=== PATIENT | female | born 1970 | race Caucasian/White ===

== ENCOUNTER 2017-03-06 15:42 | Emergency (ER) | payer OTHER ==
[~2017-03-06] VITALS: Ht 167.6 cm; Wt 70.0 kg
[2017-03-06 15:44] VITALS: BP 182/105; PULSE 83; RESP 16; TEMP 98.7; O2SAT 99
[2017-03-06 15:56] VITALS: BP 164/92
[2017-03-06] MEDS ORDERED: IBUPROFEN 800 MG TAB PO ONE (16:45)
--- NOTE | 2017-03-06 16:47 | PD ---
HPI Chief Complaint: Injury Time Seen by Provider: 16:47 Travel History International Travel<30 days: No Contact w/Intl Traveler<30days: No Traveled to known affect area: No History of Present Illness HPI 46-year-old female presents to the emergency Department with complaint of right hand pain to the dorsal aspect after hitting it on a metal door frame while at work today. She is an employee at [employer]. Denies paresthesias, loss of vision , range of motion to the affected extremity. Denies fever or vomiting. Has not taken any medications to alleviate her symptoms. Has applied ice to the affected area. Reports swelling and bruising to the area. Denies allergies. Has no other medical complaints. No other modifying factors or associated signs and symptoms. [facility] Past Medical History ?: Not LMP: 02/2017 Social History Tobacco Use: No Allergies-Medications (Allergen,Severity, Reaction): Coded Allergies: No Known Allergies (Unverified , 03/06/17) Reported Meds & Prescriptions Reported Meds & Active Scripts Active No Active Prescriptions or Reported Medications Review of Systems Except as stated in HPI: all other systems reviewed are Neg Physical Exam Narrative GENERAL: Well-nourished, well-developed female patient, in no acute distress SKIN: Warm and dry. HEAD: Atraumatic. Normocephalic. EYES: Pupils equal and round. No scleral icterus. No injection or drainage. ENT: Mucosa pink and moist. Airway patent. NECK: Trachea midline. CARDIOVASCULAR: Regular rate. RESPIRATORY: No accessory muscle use. GASTROINTESTINAL: Flat. MUSCULOSKELETAL: Mild edema and ecchymosis noted to the dorsal aspect of the right hand to the area of the first and second metacarpals; no obvious deformity ; fingers with full range of motion and sensory intact and less than 3 second cap refill; areas with tenderness to palpation. Right upper approximately supplementals with 2+ radial pulses and sensory intact without erythema or edema. No obvious deformities. No clubbing. No cyanosis. NEUROLOGICAL: Awake and alert. Oriented 3. No obvious cranial nerve deficits. Motor grossly within normal limits. Normal speech. PSYCHIATRIC: Appropriate mood and affect; insight and judgment normal. Data Data Last Documented VS Vital Signs Date Time Temp Pulse Resp B/P Pulse Ox O2 Delivery O2 Flow Rate FiO2 03/06/17 15:56 164/92 03/06/17 15:44 98.7 83 16 99 Orders Hand, Complete ([id number]) (03/06/17 16:45) Ice/Cold Pack (03/06/17 16:45) Ibuprofen (Motrin) (03/06/17 16:45) MDM Medical Decision Making Medical Screen Exam Complete: Yes Emergency Medical Condition: Yes Medical Record Reviewed: Yes Differential Diagnosis Hand contusion, hand fracture, hand sprain Narrative Course 46-year-old female with right hand injury. She is an employee at [employer]. Injury occurred at work today. Ibuprofen administered in the ER. Right hand x- ray ordered. 1708: Right hand x-ray was no acute findings. Ry bandage applied for support. Ibuprofen prescribed for home. Patient verbalizes understanding and agreement with treatment plan. Patient is medically cleared and stable for discharge. Discussed reasons to return to the emergency department. Instructed patient to follow up with primary care provider. Patient agrees with treatment plan. The patients vital signs are stable and the patient is stable for outpatient follow-up and treatment. Patient discharged home, stable and in no acute distress. Diagnosis Primary Impression: Contusion of right hand Qualified Code: S60.221A - Contusion of right hand, initial encounter Referrals: Primary Care Physician Patient Instructions: Contusion in Adults (ED), General Instructions Departure Forms: Tests/Procedures, Work Release Enter return to work date: March 07, 2017 Additional Instructions: Tylenol or ibuprofen as directed and as needed to reduce pain Rest, ice, compress, and elevate extremity to decrease pain and inflammation Ry wrap for support Avoid aggravating activity; increase activity as tolerated Follow-up with primary care provider Return to the emergency department immediately with worsening symptoms Med/Other Pt SpecificInfo: Prescription(s) given Scripts Ibuprofen 800 Mg [id number] Mg PO Q6HR PRN (PAIN) #30 TAB Ref 0 Prov:Sosa Clark 03/06/17 Disposition: 01 DISCHARGE HOME Condition: Stable Sosa Clark March 06, 2017 16:47
--- NOTE | 2017-03-06 17:05 | RADRPT ---
EXAM DATE/TIME: 03/06/2017 16:53 [facility] COMPARISON: No previous studies available for comparison. INDICATIONS : Right hand pain on lateral side and radiates up right arm. Patient states she hit her hand on the do or. MEDICAL HISTORY : None. SURGICAL HISTORY : None. ENCOUNTER: Initial ACUITY: 1 day PAIN SCORE: 5/10 LOCATION: Right hand. FINDINGS: Three view examination of the right hand demonstrates no soft tissue swelling, dislocation, or fractu re. The carpal bones appear intact. The interphalangeal and metacarpophalangeal joints are intact. Bony mineralization is normal. CONCLUSION: Unremarkable examination of the right hand. Bryan Corbin MD on March 06, 2017 at 17:02 Board Certified Radiologist. This report was verified electronically.
[2017-03-06] MEDS ORDERED: IBUP800T23 PO (17:09)
== END 2017-03-06 17:23 | disposition home or self-care (01) ==
LOC: NEPK 15:42
DX: S60.221A Contusion of right hand, initial encounter (principal); W22.09XA Striking against other stationary object, initial encounter; Y92.239 Unspecified place in hospital as the place of occurrence of the external cause; Y99.0 Civilian activity done for income or pay
CPT/HCPCS: 73130; 99283